=== PATIENT | female | born 1950 | race African-American/Black ===

== ENCOUNTER 2017-11-28 03:18 | Emergency (ER) | payer MEDICAID, OTHER ==
[~2017-11-28] VITALS: Ht 149.9 cm; Wt 69.0 kg
[2017-11-28 04:16] LABS: BASOPHILS % 0.3 % (0.0-2.0); EOSINOPHILS % 1.5 % (0.0-5.0); HEMATOCRIT. 34.4 % (36.0-48.0); HEMOGLOBIN. 11.7 g/dL (12.0-16.0); LYMPHOCYTES % 31.2 % (20.0-50.0); MEAN CORPUSCULAR HEMOGLOBIN 31.5 pg (28.0-32.0); MEAN CORPUSCULAR VOLUME 92.2 fL (81.0-99.0); MEAN PLATELET VOLUME 7.2 fl (7.4-10.4); PLATELET 260 x1000/uL (130-400); RED BLOOD CELL COUNT 3.73 mill/uL (4.2-5.4)
[2017-11-28 04:19] LABS: PROTHROMBIN TIME 10.4 sec (9.4-11.6)
[2017-11-28 04:28] LABS: CARBON DIOXIDE 26 mEq/L (21-32); CHLORIDE 100 mEq/L (98-107); TROPONIN I < 0.02 ng/mL (0.00-0.04)
[2017-11-28] MEDS ORDERED: ONDANSETRON HCL 4MG/2ML VIAL IV ONE (05:15)
[2017-11-28] MEDS ORDERED: MORPHINE SULFATE 4 MG/ML CPJ (NOT FOR IM USE) IV ONE (06:45)
[2017-11-28] MEDS ORDERED: PANTOPRAZOLE 40MG DR TABLET PO NR (13:00)
[2017-11-28] MEDS ORDERED: ASPIRIN 81MG EC TABLET PO NR (13:00)
[2017-11-28 13:18] LABS: BASOPHILS % 0.5 % (0.0-2.0); EOSINOPHILS % 1.2 % (0.0-5.0); HEMATOCRIT. 34.3 % (36.0-48.0); HEMOGLOBIN. 11.5 g/dL (12.0-16.0); LYMPHOCYTES % 38.1 % (20.0-50.0); MEAN CORPUSCULAR HEMOGLOBIN 30.8 pg (28.0-32.0); MEAN PLATELET VOLUME 7.2 fl (7.4-10.4); MONOCYTES % 11.3 % (2.0-8.0); NEUTROPHILS % 48.9 % (40.0-76.0); PLATELET 275 x1000/uL (130-400); RED BLOOD CELL COUNT 3.73 mill/uL (4.2-5.4); RED CELL DISTRIBUTION WIDTH 13.1 % (11.6-14.6)
[2017-11-28 13:19] LABS: CHLORIDE 101 mEq/L (98-107)
[2017-11-28 13:30] LABS: CARBON DIOXIDE 28 mEq/L (21-32); TROPONIN I < 0.02 ng/mL (0.00-0.04)
[2017-11-28] MEDS ORDERED: ONDANSETRON HCL 4MG/2ML VIAL ONE (14:54)
[2017-11-28] MEDS ORDERED: ONDANSETRON HCL 4MG/2ML VIAL IV NR (15:19)
[2017-11-28 19:40] VITALS: BP 122/70
== END 2017-11-28 19:50 | disposition left against medical advice (07) ==
LOC: ER 03:18 → EDBEDREQTM 05:35 → EDBEDREQ 05:35 → ENRESERV 12:30 → CANRESERV 12:30 → CANBEDREQ 13:02 → ER 19:50
DX: R55 Syncope and collapse (principal); I10 Essential (primary) hypertension
CPT/HCPCS: 36415; 70450; 71045; 72125; 80048; 80053; 83880; 84484; 85025; 85610; 87804; 93005; 96374; 96375; 96376; 99285; J2270; J2405

== ENCOUNTER 2020-06-23 08:47 | Emergency (ER) | payer MEDICAID, OTHER ==
[~2020-06-23] VITALS: Ht 165.1 cm; Wt 61.0 kg
[2020-06-23] MEDS ORDERED: KETOROLAC 60MG/2ML VIAL IM ONE (09:15)
[2020-06-23 11:41] VITALS: BP 137/76
== END 2020-06-23 12:50 | disposition home or self-care (01) ==
LOC: ER 09:04
DX: M25.552 Pain in left hip (principal); M54.16 Radiculopathy, lumbar region; I10 Essential (primary) hypertension; K21.9 Gastro-esophageal reflux disease without esophagitis
CPT/HCPCS: 73502; 96372; 99283; J1885

== ENCOUNTER 2021-01-14 14:22 | Emergency (ER) | payer MEDICAID ==
[~2021-01-14] VITALS: Ht 162.6 cm; Wt 64.0 kg
[2021-01-14] MEDS ORDERED: LORAZEPAM 0.5MG TABLET PO ONE (15:15)
[2021-01-14] MEDS ORDERED: ACETAMINOPHEN 325MG TABLET PO ONE (15:15)
[2021-01-14 15:18] LABS: BASOPHILS % 0.5 % (0.0-2.0); EOSINOPHILS % 0.7 % (0.0-5.0); HEMATOCRIT. 34.9 % (36.0-48.0); LYMPHOCYTES % 22.7 % (20.0-50.0); MEAN CORPUSCULAR HEMOGLOBIN 31.6 pg (28.0-32.0); MEAN CORPUSCULAR VOLUME 91.9 fL (81.0-99.0); MEAN PLATELET VOLUME 7.3 fl (7.4-10.4); MONOCYTES % 7.5 % (2.0-8.0); NEUTROPHILS % 68.6 % (40.0-76.0); PLATELET 270 x1000/uL (130-400); RED CELL DISTRIBUTION WIDTH 13.3 % (11.6-14.6)
[2021-01-14 15:28] LABS: CHLORIDE 100 mEq/L (98-107)
[2021-01-14] MEDS ORDERED: LORA-249 MT (16:16)
[2021-01-14 16:27] VITALS: BP 139/76
== END 2021-01-14 16:50 | disposition home or self-care (01) ==
LOC: ER 14:22
DX: F41.1 Generalized anxiety disorder (principal); I10 Essential (primary) hypertension
CPT/HCPCS: 36415; 71045; 80053; 83880; 84484; 85025; 93005; 99285; Z7610

== ENCOUNTER 2021-01-22 08:43 | Emergency (ER) | payer MEDICAID ==
[~2021-01-22] VITALS: Ht 154.9 cm; Wt 72.0 kg
[~2021-01-22 08:43] MED LIST: LORA-249 MT
[2021-01-22 09:32] LABS: BASOPHILS % 0.7 % (0.0-2.0); HEMATOCRIT. 37.6 % (36.0-48.0); HEMOGLOBIN. 12.8 g/dL (12.0-16.0); LYMPHOCYTES % 27.6 % (20.0-50.0); MEAN CORPUSCULAR HEMOGLOBIN 30.7 pg (28.0-32.0); MEAN CORPUSCULAR VOLUME 89.9 fL (81.0-99.0); MEAN PLATELET VOLUME 7.1 fl (7.4-10.4); MONOCYTES % 8.9 % (2.0-8.0); NEUTROPHILS % 61.8 % (40.0-76.0); PLATELET 298 x1000/uL (130-400); RED BLOOD CELL COUNT 4.18 mill/uL (4.2-5.4); RED CELL DISTRIBUTION WIDTH 13.3 % (11.6-14.6)
[2021-01-22 09:38] LABS: CHLORIDE 93 mEq/L (98-107)
[2021-01-22] MEDS ORDERED: ONDANSETRON HCL 4MG/2ML INJ IV ONE (09:45)
[2021-01-22] MEDS ORDERED: MORPHINE SULFATE 4 MG/ML CPJ (NOT FOR IM USE) IV ONE (10:00)
[2021-01-22] MEDS ORDERED: IOHEXOL-300 100 ML BOTTLE ONE (10:30)
[2021-01-22 11:04] LABS: CLARITY URINE CLEAR (CLEAR); COLOR URINE YELLOW (YELLOW); KETONES URINE NEGATIVE (NEGATIVE); LEUKOCYTE ESTERASE URINE NEGATIVE (NEGATIVE); NITRITE URINE NEGATIVE (NEGATIVE); OCCULT BLOOD URINE NEGATIVE (NEGATIVE); PH URINE >=9.0 (4.5-8.0); PROTEIN URINE NEGATIVE (NEGATIVE); SPECIFIC GRAVITY URINE 1.017 (1.005-1.030); UROBILINOGEN URINE 0.2 E.U./dL (0.2-1.0)
[2021-01-22] MEDS ORDERED: ONDA4TAB5 MT (14:27)
[2021-01-22 14:40] VITALS: BP 153/75
== END 2021-01-22 15:03 | disposition home or self-care (01) ==
LOC: ER 08:43
DX: R10.13 Epigastric pain (principal); R05 Cough; E78.00 Pure hypercholesterolemia, unspecified; I10 Essential (primary) hypertension; Z20.822 Contact with and (suspected) exposure to COVID-19
CPT/HCPCS: 36415; 71045; 74177; 80053; 81003; 83690; 84484; 85025; 93005; 96374; 96375; 99285; C9803; J2270; J2405; Q9967; U0003

== ENCOUNTER 2021-12-31 16:16 | Inpatient (IN) | payer MEDICAID, OTHER ==
[~2021-12-31] VITALS: Ht 147.3 cm; Wt 54.9 kg
[~2021-12-31 16:16] MED LIST changes: +ONDA4TAB5 MT
[2021-12-31] MEDS ORDERED: MORPHINE SULFATE 4 MG/ML CPJ (NOT FOR IM USE) IV STA (16:48)
[2021-12-31] MEDS ORDERED: ONDANSETRON HCL 4MG/2ML INJ IV STA (16:48)
[2021-12-31] MEDS ORDERED: NITROGLYCERIN OINT 1GM/INCH UDPKT TD ONE (17:00)
[2021-12-31 17:04] LABS: CHLORIDE 94 mEq/L (98-107)
[2021-12-31 17:05] LABS: BASOPHILS % 0.3 % (0.0-2.0); EOSINOPHILS % 0.3 % (0.0-5.0); HEMATOCRIT. 34.5 % (36.0-48.0); LYMPHOCYTES % 20.9 % (20.0-50.0); MEAN CORPUSCULAR HEMOGLOBIN 31.2 pg (28.0-32.0); MEAN PLATELET VOLUME 6.7 fl (7.4-10.4); MONOCYTES % 8.1 % (2.0-8.0); NEUTROPHILS % 70.4 % (40.0-76.0); PLATELET 318 x1000/uL (130-400); RED BLOOD CELL COUNT 3.83 mill/uL (4.2-5.4); RED CELL DISTRIBUTION WIDTH 12.9 % (11.6-14.6)
[2021-12-31] MEDS ORDERED: LORAZEPAM 0.5MG TABLET PO ONE (21:00)
[2022-01-01 04:00] VITALS: BP 147/71
[2022-01-01 04:43] VITALS: BP 147/71
[2022-01-01] MEDS ORDERED: NALOXONE HCL 0.4MG/ML VIAL IV PRN (07:15)
[2022-01-01 08:00] VITALS: BP 116/71
[2022-01-01] MEDS: HYDROCODONE/ACETAMINOPHEN 5/325MG TABLET PO PRN ×2 (09:02→17:11)
[2022-01-01] MEDS: ENOXAPARIN 40MG/0.4ML SYR SUBCUT SCH (09:02)
[2022-01-01] MEDS ORDERED: BUSP5TAB3 MT (10:13)
[2022-01-01] MEDS ORDERED: ATOR40TA70 MT (10:13)
[2022-01-01] MEDS ORDERED: BACL-141 PO (10:13)
[2022-01-01] MEDS ORDERED: PANT20TA17 MT (10:13)
[2022-01-01] MEDS ORDERED: CEPH500C2 MT (10:13)
[2022-01-01] MEDS ORDERED: DOCU-150 MT (10:13)
[2022-01-01] MEDS ORDERED: LIFI1DRO3 EACHEYE (10:13)
[2022-01-01] MEDS ORDERED: AMLO10TA80 MT (10:13)
[2022-01-01] MEDS ORDERED: BENA5TAB6 MT (10:13)
[2022-01-01] MEDS ORDERED: CARB25TA MT (10:13)
[2022-01-01] MEDS ORDERED: LORAZEPAM 0.5MG TABLET PO PRN (11:45)
[2022-01-01 12:00] VITALS: BP 138/64
[2022-01-01] MEDS ORDERED: REGADENOSON 0.4 MG/5 ML IV NR (12:00)
[2022-01-01] MEDS: ASPIRIN 81MG EC TABLET PO SCH (13:01)
[2022-01-01] MEDS ORDERED: CARB-32 MT (15:01)
[2022-01-01] MEDS ORDERED: BUSP10TA3 MT (15:05)
[2022-01-01] MEDS ORDERED: ATOR20TA65 MT (15:06)
[2022-01-01] MEDS ORDERED: BENA20TA10 MT (15:09)
[2022-01-01] MEDS ORDERED: PANT40TA51 MT (15:09)
[2022-01-01] MEDS: SODIUM CHLORIDE 0.9% 1,000 ML IV SCH (15:22)
[2022-01-01 16:00] VITALS: BP 136/76
[2022-01-01 16:16] LABS: CREATINE KINASE 173 IU/L (26-192); CREATINE KINASE MB FRACTION 1.4 ng/mL (0.5-3.6)
[2022-01-01 16:43] LABS: SODIUM URINE RANDOM 54 mEq/L
[2022-01-01 20:00] VITALS: BP 116/73
[2022-01-01] MEDS ORDERED: ATORVASTATIN CALCIUM 10MG TABLET PO SCH (21:00)
[2022-01-01] MEDS: AMLODIPINE 2.5MG TABLET PO SCH (21:25)
[2022-01-01] MEDS ORDERED: MAGNESIUM/ALUMINUM HYDROXIDE/SIMETHICONE 30ML UDC PO PRN (22:15)
[2022-01-01 23:48] LABS: CREATINE KINASE 152 IU/L (26-192); CREATINE KINASE MB FRACTION 1.4 ng/mL (0.5-3.6)
[2022-01-02] VITALS: BP 136/73
[2022-01-02] MEDS ORDERED: *PATIENT'S OWN MEDICATION STORAGE XX SCH (03:30)
[2022-01-02 04:00] VITALS: BP 106/64
[2022-01-02] MEDS: SODIUM CHLORIDE 0.9% 1,000 ML IV SCH (05:29)
[2022-01-02 07:29] LABS: BASOPHILS % 0.6 % (0.0-2.0); EOSINOPHILS % 1.4 % (0.0-5.0); HEMOGLOBIN. 10.9 g/dL (12.0-16.0); LYMPHOCYTES % 25.1 % (20.0-50.0); MEAN CORPUSCULAR HEMOGLOBIN 31.6 pg (28.0-32.0); MEAN CORPUSCULAR VOLUME 89.7 fL (81.0-99.0); MEAN PLATELET VOLUME 6.5 fl (7.4-10.4); MONOCYTES % 9.2 % (2.0-8.0); NEUTROPHILS % 63.7 % (40.0-76.0); PLATELET 275 x1000/uL (130-400); RED BLOOD CELL COUNT 3.46 mill/uL (4.2-5.4); RED CELL DISTRIBUTION WIDTH 13.2 % (11.6-14.6)
[2022-01-02 07:35] LABS: CHLORIDE 103 mEq/L (98-107)
[2022-01-02 07:52] LABS: CREATINE KINASE 139 IU/L (26-192)
[2022-01-02 07:55] LABS: CREATINE KINASE MB FRACTION 2.1 ng/mL (0.5-3.6)
[2022-01-02 08:00] VITALS: BP 131/71
[2022-01-02] MEDS: ASPIRIN 81MG EC TABLET PO SCH (09:00)
[2022-01-02] MEDS: ENOXAPARIN 40MG/0.4ML SYR SUBCUT SCH (09:00)
[2022-01-02] MEDS: AMLODIPINE 2.5MG TABLET PO SCH (09:00)
[2022-01-02] MEDS ORDERED: REGADENOSON 0.4 MG/5 ML IV ONE (10:46)
[2022-01-02 12:00] VITALS: BP 119/68
[2022-01-02 15:33] VITALS: BP 125/66
== END 2022-01-02 16:30 | disposition home or self-care (01) | DRG 203 ==
LOC: ER 16:16 → MICUSO 22:29 → EDBEDREQTM 22:31 → EDBEDREQ 22:31 → 8WST 01-01 04:16
PROVIDERS: ADMIT Internal Medicine; ATTEND Internal Medicine
DX: M94.0 Chondrocostal junction syndrome [Tietze] (principal); E87.1 Hypo-osmolality and hyponatremia; G20 Parkinson's disease; E78.00 Pure hypercholesterolemia, unspecified; E78.5 Hyperlipidemia, unspecified; F41.9 Anxiety disorder, unspecified; Z20.822 Contact with and (suspected) exposure to COVID-19; I10 Essential (primary) hypertension; F32.A Depression, unspecified; Z79.82 Long term (current) use of aspirin; Z90.710 Acquired absence of both cervix and uterus; Z82.49 Family history of ischemic heart disease and other diseases of the circulatory system; Z79.2 Long term (current) use of antibiotics; Z79.899 Other long term (current) drug therapy
CPT/HCPCS: 36415; 71045; 78452; 80048; 80053; 82550; 82553; 83880; 83935; 84300; 84484; 85025; 87426; 93005; 93017; 93306; 99285; A9500; J1650; J2270; J2405; J2785; J7030